=== PATIENT | female | born 1960 | race Caucasian/White ===

== ENCOUNTER 2017-08-27 11:57 | Day surgery (SDC) | payer BC ==
[~2017-08-27] VITALS: Ht 165.2 cm; Wt 109.0 kg
[2017-08-27] VITALS (9 sets, daily range): BP systolic 125–154; BP diastolic 59–79; PULSE 53–67; TEMP 97.7–98
[2017-08-27] MEDS ORDERED: COZAAR 50MG50 MG/TAB PO (13:21)
[2017-08-27 13:22] LABS: HEMATOCRIT 39.2 % (37.0-47.0); MEAN CELL VOLUME 97 fl (80.0-100.0); MEAN CORPUSCULAR HEMOGLOBIN 32 pg (27.0-31.0); MEAN CORPUSCULAR HGB CONC 33 g/dl (33.0-37.0); MEAN PLATELET VOLUME 10.3 fl (7.4-10.4); PLATELET COUNT 221 K/mm3 (130-400); RED BLOOD COUNT 4.06 M/mm3 (4.10-5.30); WHITE BLOOD COUNT 6.4 K/mm3 (4.8-10.8)
[2017-08-27] MEDS ORDERED: POTASSIUM GLUC595 M1 PO (13:22)
[2017-08-27] MEDS ORDERED: IRON TABLETS325 MG PO (13:22)
[2017-08-27] MEDS ORDERED: VITAMIN B12 681 TAB PO (13:23)
[2017-08-27] MEDS ORDERED: VITAMIN D 1001000 IU (13:23)
[2017-08-27] MEDS ORDERED: MULTI VITAMINS1 TAB PO (13:24)
[2017-08-27] MEDS ORDERED: CALCIUM 600/VIT1 CAP PO (13:24)
[2017-08-27 13:35] LABS: CREATININE, serum 0.62 mg/dL (0.52-1.25); POTASSIUM 3.7 mmol/L (3.4-5.0)
== END 2017-08-27 19:00 | disposition home or self-care (01) ==
LOC: COL.CAR 11:57
PROVIDERS: Internal Medicine Interventional Cardiology
DX: R94.39 Abnormal result of other cardiovascular function study (principal); I10 Essential (primary) hypertension; Z87.891 Personal history of nicotine dependence; Z82.49 Family history of ischemic heart disease and other diseases of the circulatory system; Z82.3 Family history of stroke
CPT/HCPCS: J2250; J3010; Q9967